=== PATIENT | female | born 1995 | race Caucasian/White ===

== ENCOUNTER 2018-11-27 18:58 | Emergency (ER) | payer MEDICAID ==
[~2018-11-27] VITALS: Ht 154.9 cm; Wt 54.4 kg
--- NOTE | 2018-11-27 19:17 | NUR ---
ED Nurse Note: Walk-in patient with complaints of rash on the lower half of body. Patient is about 4-5 weeks post . Patient denies taking any medication and denies any other complaints.
[2018-11-27 19:18] VITALS: BP 100/61
[2018-11-27] MEDS ORDERED: Lidocaine 1% MPF 10mg/ml 5ml INJ ONE (19:45)
--- NOTE | 2018-11-27 19:51 | Emergency Room Report ---
History of Present Illness General Chief Complaint: Skin Rash/Abscess Source: Patient Present Illness HPI 22-year-old female with no significant past medical history here complaining of cyst on right buttocks x2 days. Patient reports that she had a last month and that has been resolved denies any pain or fever and chills. Has a round cellulitic cyst in the right buttocks reports that antibiotics were called in for her by her primary care provider however due to not being covered by her insurance she did not pick it up does not recall the name of the medication was. Patient denies any fever and chills, pus drainage, chest pain, shortness of breath, or other associated symptom is up-to-date with her tetanus shot. Rating her pain 5 out of 10 upon sitting on the affected side. Allergies: Coded Allergies: SULFAMETHOXAZOLE (Verified Allergy, Unknown, 11/27/18) hives TRIMETHOPRIM (Verified Allergy, Unknown, 11/27/18) hives Patient History Past Medical History: see triage record Past Surgical History: unable to obtain Pertinent Family History: none Last Menstrual Period: oct 18 2016 Now: No : 1 Para: 1 Immunizations: UTD Reviewed Nursing Documentation: PMH: Agreed; PSxH: Agreed Nursing Documentation-PMH Hx Asthma: Yes Review of Systems All Other Systems: negative except mentioned in HPI Physical Exam Vital Signs Date Time Temp Pulse Resp B/P (MAP) Pulse Ox O2 Delivery O2 Flow Rate FiO2 11/27/18 19:02 98.2 109 18 100/61 (74) 100 Room Air Sp02 EP Interpretation: reviewed, normal General Appearance: no apparent distress, alert, GCS 15, non-toxic Head: normocephalic, atraumatic Eyes: bilateral eye normal inspection, bilateral eye PERRL ENT: hearing grossly normal, normal pharynx, no angioedema, normal voice Neck: full range of motion, supple/symm/no masses Respiratory: chest non-tender, lungs clear, normal breath sounds, speaking full sentences Cardiovascular #1: regular rate, rhythm, no edema, no murmur Gastrointestinal: normal bowel sounds, non tender, soft, non-distended, no guarding, no rebound Rectal: deferred Genitourinary: other - Cyst on her right buttocks without any pus drainage Musculoskeletal: back normal, gait/station normal, normal range of motion, non- tender, no calf tenderness Neurologic: alert, oriented x3, responsive, motor strength/tone normal, sensory intact, speech normal Psychiatric: judgement/insight normal, memory normal, mood/affect normal, no suicidal/homicidal ideation Skin: other - Cyst noted in the right buttocks without any pus drainage Lymphatic: no adenopathy Medical Decision Making LESLIE Attestation All my diagnosis and treatment plans were reviewed ad discussed with my supervising physician Dr. Early Diagnostic Impression: Primary Impression: Cellulitis and abscess of buttock ER Course 22-year-old female with no significant past medical history here complaining of cyst on right buttocks x2 days. Patient reports that she had a last month and that has been resolved denies any pain or fever and chills. Has a round cellulitic cyst in the right buttocks reports that antibiotics were called in for her by her primary care provider however due to not being covered by her insurance she did not pick it up does not recall the name of the medication was. Patient denies any fever and chills, pus drainage, chest pain, shortness of breath, or other associated symptom is up-to-date with her tetanus shot. Rating her pain 5 out of 10 upon sitting on the affected side. Ddx considered but are not limited to : Cellulitis,, superficial infection, abscess Vital signs: are WNL, pt. is afebrile H&PE are most consistent with: Cellulitis of buttocks ORDERS: Clindamycin, ibuprofen ED INTERVENTIONS: Rocephin DISCHARGE: At this time pt. is stable for d/c to home. Will provide printed patient care instructions, and any necessary prescriptions. Care plan and follow up instructions have been discussed with the patient prior to discharge. At this time no I&D is needed as it has not turned into abscess patient agrees with trying the antibiotics first and if any worsening symptoms return to the emergency room Last Vital Signs Date Time Temp Pulse Resp B/P (MAP) Pulse Ox O2 Delivery O2 Flow Rate FiO2 11/27/18 19:18 98.2 86 18 100/61 100 Room Air Disposition: HOME, SELF-CARE Condition: Stable Scripts Ibuprofen (Ibu) 800 Mg Tablet 800 MG PO TID, #21 TAB Prov: Enrique Hebert 11/27/18 Clindamycin HCl (Clindamycin HCl) 300 Mg Capsule 150 MG ORAL EVERY 6 HOURS for 7 Days, #28 CAP Prov: Enrique Hebert 11/27/18 Patient Instructions: Cellulitis, [id number] Additional Instructions: Take antibiotics as directed follow-up with your primary care provider worsening symptoms return to the emergency room Enrique Hebert Nov 27, 2018 19:51
[2018-11-27] MEDS ORDERED: CLEOCIN150 MG ORAL (19:52)
[2018-11-27] MEDS ORDERED: IBU800 MG PO (19:52)
--- NOTE | 2018-11-27 20:10 | NUR ---
ED Nurse Note: Patient cleared for discharge by Er provider. Patient has no s/s of acute distress and tolerated injection well. Patient departed with all belongings.
[2018-11-27 20:11] VITALS: BP 100/61
== END 2018-11-27 20:10 | disposition home or self-care (01) ==
LOC: EMR 19:48
DX: L02.31 Cutaneous abscess of buttock (principal); L03.317 Cellulitis of buttock; J45.909 Unspecified asthma, uncomplicated; Z88.1 Allergy status to other antibiotic agents; Z88.2 Allergy status to sulfonamides
CPT/HCPCS: 96372; 96374; J0696; Z7502; 99283

== ENCOUNTER 2019-05-05 13:14 | Emergency (ER) | payer MEDICAID ==
[~2019-05-05] VITALS: Ht 154.9 cm; Wt 54.4 kg
[~2019-05-05 13:14] MED LIST: CLEOCIN150 MG ORAL; FLUCONAZOLE100 MG ORAL; IBU800 MG PO; NITROFURANTOIN100 M2 ORAL
--- NOTE | 2019-05-05 13:31 | Emergency Room Report ---
History of Present Illness General Chief Complaint: Skin Rash/Abscess Source: Patient Present Illness HPI 23-year-old female with no significant medical history here complaining of right -sided posterior molar molar pain and facial swelling. Patient reports that patient has an upcoming appointment with dentist and in her last visit with dentist was told that she needs to have a root canal done in that tooth. Denies any fever and chills, rates the pain 7 out of 10 without radiation. Obvious swelling noted. No pus drainage noted. Patient in no distress. I do not believe that it has turned into full abscess yet. Denies chest pain, shortness of breath, headache and dizziness, tinnitus, vertigo, and other associated symptoms. Patient denies at this time. Allergies: Coded Allergies: SULFAMETHOXAZOLE (Verified Allergy, Unknown, 11/27/18) hives TRIMETHOPRIM (Verified Allergy, Unknown, 11/27/18) hives Patient History Past Medical History: see triage record Past Surgical History: none Pertinent Family History: none Last Menstrual Period: 04/29/19 Now: No : 3 Para: 1 Immunizations: UTD Reviewed Nursing Documentation: PMH: Agreed; PSxH: Agreed Nursing Documentation-PMH Past Medical History: No History, Except For Hx Asthma: Yes Review of Systems All Other Systems: negative except mentioned in HPI Physical Exam Vital Signs Date Time Temp Pulse Resp B/P (MAP) Pulse Ox O2 Delivery O2 Flow Rate FiO2 05/05/19 13:19 98.2 118 18 127/85 (99) 100 Room Air Sp02 EP Interpretation: reviewed, normal General Appearance: no apparent distress, alert, GCS 15, non-toxic Head: normocephalic, atraumatic Eyes: bilateral eye normal inspection, bilateral eye PERRL ENT: EOM grossly intact, normal pharynx, no angioedema, other - Right posterior upper molar infection and facial swelling Neck: full range of motion, supple, thyroid normal, supple/symm/no masses Respiratory: chest non-tender, lungs clear, normal breath sounds, no rhonchi, no wheezing, speaking full sentences Cardiovascular #1: regular rate, rhythm, no edema, no murmur Gastrointestinal: normal bowel sounds, non tender, soft, non-distended, no guarding, no rebound Rectal: deferred Genitourinary: no CVA tenderness Musculoskeletal: back normal Neurologic: alert, motor strength/tone normal, oriented x3, sensory intact, responsive, speech normal Psychiatric: normal inspection, judgement/insight normal Skin: no rash Lymphatic: no adenopathy Medical Decision Making PA Attestation All diagnoses and treatment plans were reviewed and discussed with my supervising physician Dr. Greenwood Diagnostic Impression: Primary Impression: Dental infection Additional Impression: Facial swelling ER Course 23-year-old female with no significant medical history here complaining of right -sided posterior molar molar pain and facial swelling. Patient reports that patient has an upcoming appointment with dentist and in her last visit with dentist was told that she needs to have a root canal done in that tooth. Denies any fever and chills, rates the pain 7 out of 10 without radiation. Obvious swelling noted. No pus drainage noted. Patient in no distress. I do not believe that it has turned into full abscess yet. Denies chest pain, shortness of breath, headache and dizziness, tinnitus, vertigo, and other associated symptoms. Patient denies at this time. Ddx considered but are not limited to : Cellulitis, dental infection, superficial infection, abscess Vital signs: are WNL, pt. is afebrile H&PE are most consistent with: Possible dental infection with facial swelling ORDERS: Amoxicillin, Motrin, prednisone ED INTERVENTIONS: None required at this time. DISCHARGE: At this time pt. is stable for d/c to home. Will provide printed patient care instructions, and any necessary prescriptions. Care plan and follow up instructions have been discussed with the patient prior to discharge. Patient to follow-up with her dentist. If worsening symptoms, fever and chills, pus drainage return to the emergency room for incision and drainage. At this time no incision and drainage is necessary as it has not yet turned into an abscess. Last Vital Signs Date Time Temp Pulse Resp B/P (MAP) Pulse Ox O2 Delivery O2 Flow Rate FiO2 05/05/19 13:19 98.2 118 18 127/85 (99) 100 Room Air Disposition: HOME, SELF-CARE Condition: Stable Scripts Ibuprofen* (MOTRIN*) 600 Mg Tablet 600 MG ORAL Q6H PRN for For Pain, #30 TAB Prov: Enrique Hebert 05/05/19 Prednisone* (PREDNISONE*) 20 Mg Tablet 40 MG ORAL DAILY for 5 Days, #10 TAB Prov: Enrique Hebert 05/05/19 Amoxicillin* (AMOXIL*) 500 Mg Capsule 500 MG ORAL EVERY 8 HOURS for 10 Days, #30 CAP Prov: Enrique Hebert 05/05/19 Patient Instructions: Abscess Additional Instructions: At this time no incision and drainage is needed as you are afebrile and swelling noted with possible abscess formation however do follow-up with a dentist. If fever and chills, worsening symptoms return to the emergency room for incision and drainage. Take antibiotics as directed. If worsening symptoms return to the emergency room Enrique Hebert May 05, 2019 13:31
[2019-05-05] MEDS ORDERED: AMOXICILLIN500 MG ORAL (13:32)
[2019-05-05] MEDS ORDERED: PREDNISONE20 MG ORAL (13:32)
[2019-05-05] MEDS ORDERED: IBUPROFEN600 MG ORAL (13:32)
--- NOTE | 2019-05-05 13:38 | NUR ---
ED Nurse Note: Pt walked into ED w/ c/o R face abscess and swelling. Pt has had tooth pain and R facial pain for a week pain 5/10. Pt is alert and orientedx4, ambulatory. Pt is present. Pt has been seen by PA. Pt has no drainage.
[2019-05-05 13:39] VITALS: BP 122/87
[2019-05-05 13:41] VITALS: BP 120/76
--- NOTE | 2019-05-05 13:41 | NUR ---
ER DISCHARGE NOTE: Patient is cleared to be discharged per ERMD, pt is aox4, on room air, with stable vital signs. pt was given dc and prescription instructions, pt was able to verbalize understanding, pt id band removed. pt is able to ambulate with steady gait. pt took all belongings.
== END 2019-05-05 15:27 | disposition home or self-care (01) ==
LOC: EMR 13:30
DX: K04.7 Periapical abscess without sinus (principal); R22.0 Localized swelling, mass and lump, head; Z88.2 Allergy status to sulfonamides; Z88.8 Allergy status to other drugs, medicaments and biological substances
CPT/HCPCS: 99282

== ENCOUNTER 2019-07-07 11:12 | Emergency (ER) | payer MEDICAID ==
[~2019-07-07] VITALS: Ht 154.9 cm; Wt 54.4 kg
[~2019-07-07 11:12] MED LIST changes: +AMOXICILLIN500 MG ORAL; +IBUPROFEN600 MG ORAL; +PREDNISONE20 MG ORAL
--- NOTE | 2019-07-07 11:20 | NUR ---
ED Nurse Note: pt walked in to ED for tooth abscess to upper right side. pt reports the abscess has been there for a few months.
[2019-07-07 11:21] VITALS: BP 121/75
[2019-07-07] MEDS ORDERED: PENICILLIN V P500 MG PO (11:29)
[2019-07-07] MEDS ORDERED: TYLENOL325 MG ORAL (11:29)
[2019-07-07] MEDS ORDERED: IBUPROFEN600 M1 ORAL (11:29)
[2019-07-07] MEDS ORDERED: Acetaminophen 500mg (ES) tab ORAL ONE (11:30)
--- NOTE | 2019-07-07 11:30 | Emergency Room Report ---
History of Present Illness General Chief Complaint: Toothache Source: Patient Present Illness HPI 23-year-old female presents with right back upper molar pain x1 day, patient reports that she was told she may need a root canal, aggravated with food alleviated with rest severity is severe, intermittent she endorses a tooth ache , no fevers no chills has been ongoing for 1 day Allergies: Coded Allergies: SULFAMETHOXAZOLE (Verified Allergy, Unknown, 11/27/18) hives TRIMETHOPRIM (Verified Allergy, Unknown, 11/27/18) hives COVID-19 Screening Contact w/high risk pt: No Recent Travel to affected area: No Experienced COVID-19 symptoms?: No Patient History Past Medical History: see triage record Social History: Reports: smoking Last Menstrual Period: now Now: No Reviewed Nursing Documentation: PMH: Agreed; PSxH: Agreed Nursing Documentation-PMH Hx Asthma: Yes Review of Systems All Other Systems: negative except mentioned in HPI Physical Exam Vital Signs Date Time Temp Pulse Resp B/P (MAP) Pulse Ox O2 Delivery O2 Flow Rate FiO2 07/07/19 11:15 98.4 110 20 121/75 (90) 97 Simple Mask General Appearance: well appearing, no apparent distress Head: normocephalic, atraumatic ENT: hearing grossly normal, normal voice, other - Right upper molar, poor dentition, no pus or drainage however patient has some right facial swelling Neck: full range of motion, supple Respiratory: no respiratory distress, speaking full sentences Neurologic: alert, normal gait Psychiatric: mood/affect normal Skin: no rash Medical Decision Making Diagnostic Impression: Primary Impression: Toothache Additional Impressions: Dental infection Facial swelling ER Course 23-year-old female presents most likely with a deep infection requiring antibiotics patient was referred to dental clinics, disposition home with return precautions follow-up with PCP Deferred a testing she is not aware of the consequences Last Vital Signs Date Time Temp Pulse Resp B/P (MAP) Pulse Ox O2 Delivery O2 Flow Rate FiO2 07/07/19 11:21 98.4 110 20 121/75 97 Simple Mask Disposition: HOME, SELF-CARE Condition: Stable Scripts Acetaminophen (Tylenol) 325 Mg Tablet 650 MG ORAL Q6H PRN for Prn Pain/Headache/Temp > 101, #30 TAB 0 Refills Prov: Scar Elliott MD 07/07/19 Ibuprofen* (MOTRIN*) 600 Mg Tablet 600 MG ORAL Q8H PRN for FOR PAIN, #30 TAB 0 Refills Prov: Scar Elliott MD 07/07/19 Penicillin V Potassium* (PENVK*) 500 Mg Tablet 500 MG PO Q6H, #28 TAB 0 Refills Prov: Scar Elliott MD 07/07/19 Referrals: [facility] Patient Instructions: Dental Caries, [id number] Additional Instructions: The patient was provided with discharge instructions, notified to follow-up with a primary care doctor and or specialist in the next 24-48 hours, and to return to the ED if they have worsening of their symptoms. Please note that this report is being documented using [employer] technology. This can lead to erroneous entry secondary to incorrect interpretation by the dictating instrument. Scar Elliott MD Jul 07, 2019 11:30
--- NOTE | 2019-07-07 11:34 | NUR ---
ER DISCHARGE NOTE: Patient is cleared to be discharged per ERMD, pt is aox4, on room air, with stable vital signs. pt was given dc and prescription instructions, pt was able to verbalize understanding, pt id band removed without complications. pt is able to ambulate with steady gait. pt took all belongings.
== END 2019-07-07 11:35 | disposition home or self-care (01) ==
LOC: EMR 11:25
DX: K08.89 Other specified disorders of teeth and supporting structures (principal); K04.7 Periapical abscess without sinus; R22.0 Localized swelling, mass and lump, head; Z88.2 Allergy status to sulfonamides; Z88.8 Allergy status to other drugs, medicaments and biological substances
CPT/HCPCS: 99282

== ENCOUNTER 2019-10-18 21:56 | Emergency (ER) | payer MEDICAID ==
[~2019-10-18] VITALS: Ht 154.9 cm; Wt 54.4 kg
[~2019-10-18 21:56] MED LIST changes: +IBUPROFEN600 M1 ORAL; +PENICILLIN V P500 MG PO; +TYLENOL325 MG ORAL
--- NOTE | 2019-10-18 22:04 | NUR ---
ED Nurse Note: PT walked in to ed for C/O a "possible abscess to right upper gum" since yesterday. pt states she has Hx of this issue . 2 dose of PCN taken yesterday.
[2019-10-18 22:11] VITALS: BP 140/76
[2019-10-18] MEDS ORDERED: HYDROcodone/Acetamin 5/325 tab ORAL ONE (22:15)
[2019-10-18] MEDS ORDERED: AMOX TR-K CLV1 EAC2 ORAL (22:16)
[2019-10-18] MEDS ORDERED: NORCO 5-325 TA1 EAC1 ORAL (22:16)
--- NOTE | 2019-10-18 22:16 | Emergency Room Report ---
History of Present Illness General Chief Complaint: Toothache Source: Patient Present Illness HPI This is a 23-year-old female with no significant past medical history. She presents with chief plaint of dental pain. Onset for last 2 days. Localized to the right upper molar. Similar symptom in the past. She says she called her dentist but will not get an appointment until the . She took Motrin and couple of leftover penicillin. Not helping. Denies any fever chills but denies any swelling. Pain is 9 out of 10. Worse with eating or drinking. Worse with cold or hot liquids. 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 Now: No Immunizations: other Reviewed Nursing Documentation: PMH: Agreed; PSxH: Agreed Nursing Documentation-PMH Past Medical History: No History, Except For Hx Asthma: Yes Review of Systems Eye: Denies: eye pain, blurred vision ENT: Denies: ear pain, nose congestion, throat swelling Respiratory: Denies: cough, shortness of breath Cardiovascular: Denies: chest pain, palpitations Gastrointestinal: Denies: abdominal pain, diarrhea, nausea, vomiting Musculoskeletal: Denies: back pain, joint pain Skin: Denies: rash Neurological: Denies: headache, numbness Endocrine: Denies: increased thirst, increased urine Hematologic/Lymphatic: Denies: easy bruising All Other Systems: negative except mentioned in HPI Physical Exam Vital Signs Date Time Temp Pulse Resp B/P (MAP) Pulse Ox O2 Delivery O2 Flow Rate FiO2 10/18/19 22:01 98.4 96 17 143/82 (102) 97 Room Air Vitals unremarkable Sp02 EP Interpretation: reviewed, normal General Appearance: well appearing, no apparent distress, alert Head: normocephalic, atraumatic Eyes: bilateral eye PERRL, bilateral eye EOMI ENT: hearing grossly normal, normal pharynx, other - Poor dentition. She has dental decay to the right upper second molar. No abscess seen. Neck: full range of motion, supple, no meningismus Respiratory: chest non-tender, lungs clear, normal breath sounds Cardiovascular #1: regular rate, rhythm, no murmur Gastrointestinal: normal bowel sounds, non tender, no mass, no organomegaly, no bruit, non-distended Musculoskeletal: back normal, normal range of motion, gait/station normal Psychiatric: mood/affect normal Medical Decision Making Diagnostic Impression: Primary Impression: Dental infection ER Course This patient presents with a dental infection. No abscess that can be I&D. Will discharge home. Last Vital Signs Date Time Temp Pulse Resp B/P (MAP) Pulse Ox O2 Delivery O2 Flow Rate FiO2 10/18/19 22:11 98.4 85 15 140/76 98 Room Air Status: improved Disposition: HOME, SELF-CARE Condition: Stable Scripts Amoxicillin/Potassium Clav 875-125 Mg Tab* (AMOX TR-K CLV 875-125 MG TAB*) 1 Each Tablet 1 TAB ORAL EVERY 12 HOURS, #14 TAB Prov: Lyndon Brown MD 10/18/19 Hydrocodone Bit/Acetaminophen 5-325* (NORCO 5-325 TABLET*) 1 Each Tablet 1 TAB ORAL Q6H PRN for FOR PAIN, #20 TAB 0 Refills Prov: Lyndon Brown MD 10/18/19 Patient Instructions: Dental Pain Additional Instructions: Follow-up with dentist NELSON. Return if symptoms worsen. Lyndon Brown MD Oct 18, 2019 22:16
[2019-10-18 22:22] VITALS: BP 132/81
== END 2019-10-18 22:22 | disposition home or self-care (01) ==
LOC: EMR 22:18
DX: K04.7 Periapical abscess without sinus (principal); Z88.0 Allergy status to penicillin; K02.9 Dental caries, unspecified
CPT/HCPCS: 99282

== ENCOUNTER 2020-02-23 11:00 | Emergency (ER) | payer MEDICAID ==
[~2020-02-23] VITALS: Ht 157.5 cm; Wt 54.4 kg
[2020-02-23 11:00] VITALS: BP 129/79
[~2020-02-23 11:00] MED LIST changes: +AMOX TR-K CLV1 EAC2 ORAL; +NORCO 5-325 TA1 EAC1 ORAL
[2020-02-23] MEDS ORDERED: TYLENOL325 MG ORAL (11:33)
[2020-02-23] MEDS ORDERED: CEPHALEXIN500 MG ORAL (11:33)
[2020-02-23 11:37] VITALS: BP 125/74
--- NOTE | 2020-02-23 11:43 | Emergency Room Report ---
History of Present Illness General Chief Complaint: Headache Source: Patient Present Illness HPI Disclaimer: Please note that this report is being documented using [employer] technology. This can lead to erroneous entry secondary to incorrect interpretation by the dictating instrument. HPI: 24-year-old female presents for evaluation of headache. Symptoms began 3 days ago. Gradual onset and now constant throbbing frontal and temporal headache. Denies vision changes, seizure activity, loss of vision, change in hearing, balance, coordination. Denies fever or chills. Reports fatigue, decreased appetite, intermittent nausea. Reports some nasal congestion and fro ntal sinus pressure. Nonproductive cough. Also complaining of rash over the left side of the face with a small nontender bump over the left griffin. Denies trauma. Denies history of frequent headaches or migraine diagnosis. Denies morning headaches. Denies seizure-like activity. No recent testing for COVID- 19. 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 Tenderness palpation over the frontal sinuses. No significant tenderness over the maxillary sinuses. EOMI. PERRLA. Tympanic members are pearly stiles, nonbulging, nonerythematous. Uvula midline. Mild pharyngeal erythema without edema or exudate. Bilateral tender lymphadenopathy. There is a small firm nodule that is mildly tender to palpation over the left chin. Cardiovascular: RRR. S1 and S2 normal. No murmur appreciated Resp: Normal work of breathing. No cough, wheezing or crackles appreciated Abdomen: Abdomen is soft, nondistended. Nontender Skin: Intact. Acne vulgaris over the face. There is a mildly tender firm non fluctuant nodule over the left chin approximately 1 cm in diameter. No overlying ulceration, no vesicles, no bleeding, no purulent drainage. MSK: Normal tone and bulk. Moving all extremities. No obvious deformity. Neuro: Awake and alert. Mentating appropriately. Medical Decision Making Diagnostic Impression: Primary Impression: Viral syndrome Additional Impression: Facial cellulitis ER Course 24-year-old female presents for evaluation of flulike symptoms. Lasting 3 days. No recent COVID-19 testing no concern of the patient has COVID-19 or other virus such as influenza, rhinovirus etc. He also appears to have a facial cellulitis. Lung sounds are clear and she is no respiratory distress, afebrile and otherwise stable vital signs. No red flag symptoms of intracranial bleed or space occupying lesion. Do not believe she requires emergent labs or imaging at this time. Will start on Tylenol and direct outpatient COVID-19 testing. Quarantine precautions discussed. Start Keflex for facial cellulitis likely secondary to acne vulgaris. Will refer to her PMD and then dermatology as needed. Discussed reasons to return to the ER. She understands and agrees with this treatment plan. Last Vital Signs Date Time Temp Pulse Resp B/P (MAP) Pulse Ox O2 Delivery O2 Flow Rate FiO2 02/23/20 11:00 98.1 97 16 129/79 (96) 99 Room Air Disposition: HOME, SELF-CARE Condition: Stable Scripts Cephalexin* (KEFLEX*) 500 Mg Capsule 500 MG ORAL EVERY 12 HOURS for 7 Days, #14 CAP 0 Refills Prov: Krishna Greenwood MD 02/23/20 Acetaminophen (Tylenol) 325 Mg Tablet 650 MG ORAL Q6H PRN for Prn Pain/Headache/Temp > 101, #30 TAB 0 Refills Prov: Krishna Greenwood MD 02/23/20 Referrals: [facility] Patient Instructions: General Headache Without Cause Additional Instructions: Call your primary physician as soon as possible to discuss emergency department visit. You may require reevaluation or further testing per your doctor's recommendations. Limit your contact with others as much as possible over the next 14 days. Stay minimum of 6 feet away from others, do not attend large gatherings and clean and disinfect all heavily used surfaces. Follow CDC guidelines for isolation and infection prevention. If you experience any new or worsening symptoms discussed with your doctor or return to the emergency department for reevaluation. Krishna Greenwood MD Feb 23, 2020 11:43
== END 2020-02-23 12:00 | disposition home or self-care (01) ==
LOC: EMR 11:35
DX: B34.9 Viral infection, unspecified (principal); L03.211 Cellulitis of face; J45.909 Unspecified asthma, uncomplicated
CPT/HCPCS: 99282